=== PATIENT | female | born 1995 | race African-American/Black ===

== ENCOUNTER 2019-12-19 04:59 | Emergency (ER) | payer OTHER ==
[~2019-12-19] VITALS: Ht 165.1 cm; Wt 86.2 kg
[2019-12-19 05:00] VITALS: BP_SYST 133
--- NOTE | 2019-12-19 05:02 | NUR ---
Patient to ER bed 6 to gown for evaluation. Side rails up.
--- NOTE | 2019-12-19 05:10 | NUR ---
ER at bedside examining patient.
--- NOTE | 2019-12-19 05:13 | NUR ---
PT BIB BLS A&OX4 C/O OF SCISSORS STUCK ON RIGHT THUMB. PT REPORTS GIVING A HAIRCUT AND HER FINGERS SWELLED UP AND THE SCISSORS GOT STUCK. PTS RIGHT THUMB APPEARS PURPLE/PULIDO AND SWOLLEN. PT REPORTS PAIN 4 OUT OF 10. PT DENIES MEDICAL HISTORY OR TAKING MEDICATIONS.
--- NOTE | 2019-12-19 05:20 | NUR ---
ATTEMPTED TO TAKE SCISSORS OFF OF R. THUMB WITH LUBRICATION AND SLIGHT TWISTING AND TURNING. THE ATTEMPT IS UNSUCCESFUL.
--- NOTE | 2019-12-19 05:30 | NUR ---
ICE HAS BEEN APPLIED TO R. THUMB AND PT IS ELEVATING HAND TO PREVENT FURTHER SWELLING.
--- NOTE | 2019-12-19 05:45 | NUR ---
CALLED [employer] TO FIND A RING PROBLEM MANAGER ORDER TO TAKE SCISSORS OFF PTS THUMB.
--- NOTE | 2019-12-19 06:30 | NUR ---
RING CUTTER UNABLE TO CUT SCISSORS OFF OF THUMB.
--- NOTE | 2019-12-19 07:13 | NUR ---
REPORT GIVEN TO TIFFANIE COYNE FOR CONTINUATION OF CARE.
[2019-12-19 08:10] VITALS: BP_SYST 137
--- NOTE | 2019-12-19 08:10 | NUR ---
Patient given written and verbal discharge instructions and verbalizes understanding. ER MD discussed with patient the results and treatment provided. Patient in stable condition. ID arm band removed. NO Rx given. Patient educated on pain management and to follow up with PMD. Pain Scale 3/10 . Opportunity for questions provided and answered. Medication side effect fact sheet provided.
== END 2019-12-19 08:10 | disposition home or self-care (01) ==
LOC: SED 04:59
DX: S60.351A Superficial foreign body of right thumb, initial encounter (principal); W49.09XA Other specified item causing external constriction, initial encounter; Y93.89 Activity, other specified; Y92.89 Other specified places as the place of occurrence of the external cause; Y99.8 Other external cause status
CPT/HCPCS: 99284